=== PATIENT | male | born 1975 | race Caucasian/White ===

== ENCOUNTER 2018-05-25 09:19 | Emergency (ER) | payer BC ==
[~2018-05-25] VITALS: Ht 177.8 cm; Wt 80.6 kg
[2018-05-25 09:48] VITALS: BP 149/90
[2018-05-25] MEDS ORDERED: DICL100G15 TOP (10:21)
[2018-05-25] MEDS ORDERED: HALO5TAB PO (10:21)
[2018-05-25] MEDS ORDERED: HYDR50CA PO (10:21)
[2018-05-25] MEDS ORDERED: LIDO700A32 TOP (10:21)
[2018-05-25] MEDS ORDERED: BENZ1TAB7 PO (10:21)
== END 2018-05-25 10:50 | disposition home or self-care (01) ==
LOC: ER 09:20
DX: F32.9 Major depressive disorder, single episode, unspecified (principal); F41.9 Anxiety disorder, unspecified; F90.9 Attention-deficit hyperactivity disorder, unspecified type; G89.29 Other chronic pain; F17.200 Nicotine dependence, unspecified, uncomplicated; Z76.0 Encounter for issue of repeat prescription; Z56.0 Unemployment, unspecified; Z98.890 Other specified postprocedural states; Z88.0 Allergy status to penicillin; Z88.2 Allergy status to sulfonamides
CPT/HCPCS: 99284